=== PATIENT | male | born 1985 | race Two or more races ===

== ENCOUNTER 2025-10-06 10:29 | Day surgery (SDC) | payer MEDICAID ==
[2025-10-06 11:14] LABS: BASOPHILS ABSOLUTE AUTO 0.04 K/uL (0.00-0.20); BASOPHILS PERCENT AUTO 0.3 % (0.0-1.0); EOSINOPHILS ABSOLUTE AUTO 0.07 K/uL (0.00-0.45); EOSINOPHILS PERCENT AUTO 0.5 % (0.0-6.0); IMMATURE GRAN ABSOLUTE AUTO 0.04 K/uL (0.00-0.05); IMMATURE GRAN PERCENT AUTO 0.3 % (0.0-0.4); LYMPHOCYTES ABSOLUTE AUTO 2.55 K/uL (1.00-4.80); LYMPHOCYTES PERCENT AUTO 18.5 % (24.0-44.0); MEAN PLATELET VOLUME 10.6 fL (9.4-12.4); MONOCYTES ABSOLUTE AUTO 0.99 K/uL (0.00-0.80); MONOCYTES PERCENT AUTO 7.2 % (0.0-8.0); NEUTROPHILS ABSOLUTE AUTO 10.06 K/uL (1.80-7.70); NEUTROPHILS PERCENT AUTO 73.2 % (41.0-71.0); NRBC ABSOLUTE 0.00 K/uL (0.00-0.02); NRBC PERCENT 0.0 /100WBC (0.0-0.2); PLATELET COUNT,PLT 206 K/uL (150-400); RED BLOOD CELL COUNT 5.12 M/uL (4.52-5.90); WHITE BLOOD CELL COUNT,WBC 13.75 K/uL (3.9-11.3)
[2025-10-06] MEDS ORDERED: Sodium Chloride 0.9% 2.5 ML Syringe FLUSH PRN (11:28)
[2025-10-06] MEDS ORDERED: Sodium Chloride 0.9% 10 ML Syringe FLUSH PRN (11:28)
[2025-10-06] MEDS ORDERED: Naloxone 0.4 MG/ML SDV IVPUSH PRN (11:28)
[2025-10-06] MEDS: Ondansetron 4 MG/2 ML SDV IVPUSH ONE (11:38)
[2025-10-06 11:57] LABS: A/G RATIO 0.9 (0.9-1.6); ALANINE AMINOTRANSFERASE,ALT 50.0 IU/L (14-63); ASPARTATE AMNIOTRANSFERASE,AST 17.0 IU/L (15-37); BILIRUBIN TOTAL 0.6 mg/dL (0.2-1.0); BLOOD UREA NITROGEN,BUN 9.0 mg/dL (7.0-18.0); CARBON DIOXIDE,CO2 29.2 mmol/L (21.0-32.0); CHLORIDE,CL 100.0 mmol/L (98-107); CREATININE 0.8 mg/dL (0.8-1.3); EST CRCL DRUG DOSING (CG) 116.76 mL/min; ESTIMATED GFR 116.0 mL/min (>60); GLUCOSE RANDOM 91.0 mg/dL (74-106); POTASSIUM,K 3.7 mmol/L (3.5-5.1); PROTEIN TOTAL,TP 8.1 g/dL (6.4-8.2); SODIUM,NA 139.0 mmol/L (136-148)
[2025-10-06 11:58] LABS: APPEARANCE,URINE CLEAR; GLUCOSE,URINE 250 mg/dL (NEGATIVE); OCCULT BLOOD,URINE NEGATIVE (NEGATIVE)
[2025-10-06 12:14] LABS: EPITHELIAL CELLS,URINE RARE (NONE-FEW)
[2025-10-06] MEDS: Iopamidol 755 Mg/ML 100 ML Bottle IVPUSH ONE (12:40)
[2025-10-06 14:29] LABS: C. TRACHOMATIS BY PCR NOT DETECTED; N. GONORRHOEAE BY PCR NOT DETECTED
[2025-10-06] MEDS ORDERED: diphenhydrAMINE 50 MG/ML SDV IVPUSH PRN (14:51)
[2025-10-06] MEDS ORDERED: Propofol 200 MG/20 ML SDV ONE (16:39)
[2025-10-06] MEDS ORDERED: fentaNYL 250 MCG/5 ML SDV ONE (16:40)
[2025-10-06] MEDS ORDERED: Ketamine HCL/NACL, ISO-OSM 50 MG/5 ML Syringe ONE (16:40)
[2025-10-06] MEDS ORDERED: Morphine 10 MG/ML SDV ONE (16:40)
[2025-10-06] MEDS ORDERED: Ropivacaine 0.5% 5 MG/ML 30 ML SDV ONE (16:42)
[2025-10-06] MEDS ORDERED: Ketorolac 30 MG/ML SDV ONE (17:31)
[2025-10-06] MEDS ORDERED: Ondansetron 4 MG/2 ML SDV ONE (17:31)
[2025-10-06] MEDS ORDERED: Dexamethasone 4 MG/ML 5 ML MDV ONE (17:31)
[2025-10-06] MEDS ORDERED: dexmedeTOMIDine HCl 200 MCG/2 ML SDV ONE (17:54)
[2025-10-07] MEDS ORDERED: fentaNYL 250 MCG/5 ML SDV ONE (06:59)
[2025-10-07] MEDS ORDERED: Propofol 200 MG/20 ML SDV ONE (06:59)
[2025-10-07] MEDS: Acetaminophen/oxyCODONE 325-5 MG Tab PO PRN (10:44)
== END 2025-10-07 11:10 | disposition home or self-care (01) ==
LOC: MW.ED 10:29 → MW.SDS 13:39 → MW.MS 13:42 → MW.SDS 10-07 11:10
PROVIDERS: ATTEND Surgery
DX: K35.32 Acute appendicitis with perforation, localized peritonitis, and gangrene, without abscess (principal)
CPT/HCPCS: 36415; 44970; 74177; 80053; 81001; 82947; 83605; 83690; 83735; 85025; 87491; 87591; A9270; J0665; J1100; J1308; J1885; J2270; J2272; J2405; J2543; J2704; J2795; J3010; J7030; Q9967; 00840; 64486; 99285; J1171; J3490